=== PATIENT | female | born 1995 | race Caucasian/White ===

== ENCOUNTER → 2016-06-16 | Outpatient (CLI) | payer BC ==
--- NOTE | 2016-06-16 17:15 | DI ---
Indication: ITS.REASON: M25.562 PAIN IN LEFT KNEE MRI KNEE LEFT W/O CONTRAST: Comparison: None Technique: T1 and T2-weighted images in axial, coronal and sagittal image planes Findings: Patient showed significant bony bruising involving the medial femoral condylar region and a good portion of the tibial plateau. There is even minimal bruising about the occipital fibula. Small suprapatellar joint effusion is appreciated. Lateral meniscus appears intact. Medial meniscus showed minimal fluid along the outer margin. Posterior cruciate is intact. Anterior cruciate shows intrasubstance signal suggesting ligamentous strain. Patient also showed some fluid and edematous changes some posteriorly extending from the tibiofibular ligament. The patella is intact. Vascular muscularity about the knee showed no marked abnormalities. Impression: 1. Fairly marked bony bruising particularly about the medial femoral condylar region and a good portion of the tibial plateau and even minimally attending out toward the fibular head with potential injury to the tibiofibular ligament. 2. Signal in the anterior cruciate ligament suggesting strain although it still attached. .
== END ==
LOC: IMA 13:00
PROVIDERS: ATTEND Orthopaedic Surgery
DX: M25.562 Pain in left knee (principal); R93.7 Abnormal findings on diagnostic imaging of other parts of musculoskeletal system